=== PATIENT | male | born 1980 | race Caucasian/White ===

== ENCOUNTER 2017-01-13 12:56 | Emergency (ER) | payer SELFPAY ==
[~2017-01-13] VITALS: Ht 175.3 cm; Wt 79.5 kg
[2017-01-13] MEDS ORDERED: GOOD NEIGHBOR200 M3 (13:09)
[2017-01-13] MEDS ORDERED: MEDROL DOSEPAK4 MG PO (15:34)
[2017-01-13] MEDS ORDERED: ZYRTEC10 M3 PO (15:34)
[2017-01-13] MEDS ORDERED: PEPCID 20MG TAB20 MG PO (15:34)
[2017-01-13] MEDS ORDERED: PEPCID AC20 M2 PO (15:34)
[2017-01-13 15:39] VITALS: BP 137/78
== END 2017-01-13 15:42 | disposition home or self-care (01) ==
LOC: ED 12:56
DX: T78.1XXA Other adverse food reactions, not elsewhere classified, initial encounter (principal); R21 Rash and other nonspecific skin eruption; R13.10 Dysphagia, unspecified
CPT/HCPCS: J2930